=== PATIENT | male | born 1965 | race Caucasian/White ===

== ENCOUNTER 2018-06-11 08:33 | Emergency (ER) | payer MEDICAID ==
[~2018-06-11] VITALS: Ht 165.1 cm; Wt 99.8 kg
[2018-06-11 08:39] VITALS: BP 132/78
[2018-06-11] MEDS: KETOROLAC 30 MG/ML VIAL IM ONE (09:23)
[2018-06-11 10:15] VITALS: BP 132/78
== END 2018-06-11 10:11 | disposition home or self-care (01) ==
LOC: MED 08:33
DX: M76.9 Unspecified enthesopathy, lower limb, excluding foot (principal); M25.561 Pain in right knee; M25.562 Pain in left knee; Z90.89 Acquired absence of other organs; Z88.0 Allergy status to penicillin
CPT/HCPCS: 73560; 96372; 99284; J1885; Q0092